=== PATIENT | female | born 1945 | race Caucasian/White ===

== ENCOUNTER 2016-12-20 16:46 | Observation (INO) | payer MEDICARE, OTHER ==
[~2016-12-20] VITALS: Ht 160 cm; Wt 112.5 kg
--- NOTE | ~2016-12-20 | DS ---
PATIENT'S NAME: MARIANA LEZAMA [facility] AGE: 71 Y [address] ROOM: [address]3211 [place] [address] LOCATION: [facility] [place] ADMIT DATE: 12/20/2016 Discharge Summary DISCHARGE DATE: 12/22/2016 FAMILY PHYSICIAN: Amber Sanders MD ATTENDING PHYSICIAN: Na Alberto DISCHARGE DIAGNOSES: 1. Left ureteral stone with hydronephrosis. 2. Morganella morganii urinary tract infection. 3. Diabetes, type 2. 4. Hypertension. 5. Hyperlipidemia. 6. Coronary artery disease. 7. Obesity. DISCHARGE MEDICATIONS: 1. Metformin 1000 mg p.o. twice daily. 2. Bupropion 150 mg p.o. daily. 3. Propranolol 80 mg p.o. daily. 4. Simvastatin 10 mg p.o. at bedtime. 5. Losartan 25 mg p.o. daily. 6. Imdur ER 30 mg p.o. daily. 7. Humalog insulin pen, 1 unit per one carb with carb count. 8. Lantus 26 units subcutaneous twice daily. 9. Xalatan drops, one drop ophthalmically every night at bedtime. 10. [place] 3 fatty acids/fish oil capsules 2000 mg p.o. b.i.d. 11. Multivitamin one tablet p.o. daily. 12. Calcium plus vitamin D 600 mg/400 mg two tablets p.o. daily. 13. Nitroglycerin 0.4 mg sublingually q.5 minutes p.r.n. chest pain. 14. Ciprofloxacin 500 mg p.o. twice daily for five days. PROCEDURES: Cystoscopy with left ureteral stent placement on 12/21/[address] Patricia Cline. PERTINENT LABORATORY DATA: Urine culture from 12/20/2016 did grow out Morganella morganii, greater than 100,000 colonies. Sensitivities did show that this was sensitive to the ceftriaxone the patient had been receiving, and we are sending her home on additional five days of ciprofloxacin. Accu-Cheks ranged anywhere from 65 to 296. Hemoglobin A1c was 6.1. White count upon admission was 14.4, hemoglobin was 14.4, hematocrit was 42.1, and platelets were 204. White count on 12/21/2016 had dropped to 10.3. Blood cultures that were obtained upon admission remain negative. CRP was elevated at 1.67. Lactate was elevated at 2.4. Procalcitonin was less than 0.05. PATIENT'S NAME: MARIANA LEZAMA [facility] AGE: 71 Y [address] ROOM: [address] [place], [place] [address] LOCATION: [facility] [place] ADMIT DATE: 12/20/2016 Discharge Summary DISCHARGE DATE: 12/22/2016 FAMILY PHYSICIAN: Amber Sanders MD ATTENDING PHYSICIAN: Na Alberto DIAGNOSTIC STUDIES: CT of the abdomen and pelvis on 12/20/2016 did show linear configured stones in the left UV junction measuring approximately 4 x 2 mm, and also noted was a moderate left hydronephrosis and left perinephric stranding consistent with obstruction. HOSPITAL COURSE: The patient was admitted under observation status. She was treated aggressively with IV fluids. Rocephin was initiated upon admission. Toradol was used as needed for pain. She was placed on a sliding scale. She was seen in consultation by Urology, Dr. Cline, on 12/21/2016, and arrangements were made for the cystoscopy with left stent. This was carried out on 12/21/2016. Postoperatively, the patient did fine. She was held for one overnight without any further issues besides some minimal dysuria, and ultimately was sent home on 12/22/2016. DISCHARGE DISPOSITION: The patient is being sent home on 12/22/2016 to her own home. DISCHARGE INSTRUCTIONS: She should adhere to a diabetic diet and resume her home medications. Added to this was another five days of ciprofloxacin to treat her UTI. Arrangements were made for her to follow up with Dr. Cline at his Clinic on 01/05/2017 at 09:45 a.m. It was encouraged for her daily to prevent antibiotic-induced diarrhea while on the ciprofloxacin. RUSS RAMEY PA-C FOR MD JANNETTE VIERA/james /[id number] CC: Patricia Cline MD d: 12/23/16 0053 t: 12/27/16 1626, DISCHARGE SUMMARY
--- NOTE | ~2016-12-20 | CON ---
PATIENT'S NAME: MARIANA LEZAMA [facility] AGE: 71 Y [address] ROOM: [place] [address] LOCATION: [facility] [place] ADMIT DATE: 12/20/2016 Consultation DISCHARGE DATE: FAMILY PHYSICIAN: Amber Sanders MD ATTENDING PHYSICIAN: BRAYDEN PERES DATE OF CONSULTATION: 12/21/2016 REFERRING PHYSICIAN: Patricia Cline MD HISTORY OF PRESENT ILLNESS: The patient is a 71-year-old female, who had a 1-day history of left-sided colic flank pain. The pain radiates from the back to the groin area. The patient was seen in the emergency room where an abdominal and pelvic CT scan was performed. This revealed a 2 mm x 4 mm distal left ureter stone, possibly 2, present with a moderate hydronephrosis and mild hydroureter. The patient reports a distant history of nephrolithiasis. I discussed cystoscopy with left stent placement. The patient has a suspected urinary tract infection. Urinalysis revealed 20 to 50 white cells per high-powered field. White count on admission was 14,000, is down to 10,000 today. The patient did receive IV Rocephin. PAST MEDICAL HISTORY: Significant for insulin-dependent type 2 diabetes, hypertension, hyperlipidemia, and coronary artery disease with a history of myocardial infarction. PAST SURGICAL HISTORY: Past operations include cholecystectomy, tubal ligation, and toe surgery. MEDICATIONS: Include: 1. Metformin 1000 mg twice daily. 2. Wellbutrin SR 150 mg daily. 3. Inderal LA 80 mg daily. 4. Zocor 10 mg daily. 5. Cozaar 25 mg daily. 6. Isordil 20 mg daily. 7. Humalog pen. 8. Insulin 26 units subcu. 9. Xalatan eyedrops. 10. Fish oil. 11. Multivitamins. 12. Calcium carbonate 1200 mg daily. ALLERGIES: PATIENT'S NAME: MARIANA LEZAMA [facility] AGE: 71 Y [address] ROOM: [address] [address] LOCATION: [facility] [place] ADMIT DATE: 12/20/2016 Consultation DISCHARGE DATE: FAMILY PHYSICIAN: Amber Sanders MD ATTENDING PHYSICIAN: BRAYDEN PERES MORPHINE AND LEVOFLOXACIN. SOCIAL HISTORY: The patient is a nonsmoker and does not consume alcohol. REVIEW OF SYSTEMS: Negative other than her flank pain and hypertension. PHYSICAL EXAMINATION: GENERAL: An elderly female, in no acute distress. VITAL SIGNS: Stable. Afebrile. LUNGS: Clear bilaterally. CARDIAC: Regular rhythm and rate. ABDOMEN: Soft and nondistended with normoactive bowel sounds throughout. Mild flank tenderness with palpation. NEUROLOGIC: Grossly intact. SKIN: Within normal limits. MUSCULOSKELETAL: Full range of motion. IMPRESSION: Distal left ureter stones with possible infection. PLAN: We will take to OR for cystoscopy and stent placement with followup ureteroscopy in the past once infection has cleared. MD GABRIELA VEGA/james /[id number] CC: Amber Sanders MD d: 12/21/16 1225 t: 12/30/16 1158, CONSULTATION REPORT
--- NOTE | ~2016-12-20 | OR ---
PATIENT'S NAME: MARIANA LEZAMA [facility] AGE: 71 Y [address] ROOM: [place] [address] LOCATION: [facility] [place] ADMIT DATE: 12/20/2016 OR/Procedure Report DISCHARGE DATE: FAMILY PHYSICIAN: Amber Sanders MD ATTENDING PHYSICIAN: BRAYDEN PERES SURGEON: Rosario Mathews MD ROCK DUST SPRAYER: DATE OF PROCEDURE: 12/21/2016 PREOPERATIVE DIAGNOSES: 1. Distal left ureteral stones. 2. Urinary tract infection. POSTOPERATIVE DIAGNOSES: 1. Distal left ureteral stones. 2. Urinary tract infection. PROCEDURE PERFORMED: Cystoscopy, left stent placement. ANESTHESIA: MAC. COMPLICATIONS: None. INDICATION FOR PROCEDURE: The patient is a 71-year-old female admitted secondary to a 2 x 4-mm distal left ureteral stone with moderate hydronephrosis and mild hydroureter. The patient also was noted to have a white count of 14,000 at admission, urinalysis with up to 50 white cells per high-power field, and many bacteria present. DETAILS OF PROCEDURE: After informed consent was obtained, the patient was taken to the operating room. A MAC anesthetic was applied. She was placed in the dorsal lithotomy position. The groin area was prepped and draped in normal sterile fashion. Cystoscope was introduced into the urethra and bladder without difficulty. The left ureteral orifice was cannulated with a guidewire up into the renal pelvis. Next, a 6-Yakut multi-length ureteral stent was passed over the guidewire up into the renal pelvis. Radiographic imaging showed good position of the stent. The patient tolerated the procedure well, was transferred to the recovery room in good condition. ROSARIO MATHEWS MD GABRIELA/modl PATIENT'S NAME: MARIANA LEZAMA [facility] AGE: 71 Y [address] ROOM: [place] [address] LOCATION: [facility] [place] ADMIT DATE: 12/20/2016 OR/Procedure Report DISCHARGE DATE: FAMILY PHYSICIAN: Amber Sanders MD ATTENDING PHYSICIAN: BRAYDEN PERES /[id number] d: 12/21/16 1416 t: 12/30/16 1200, OPERATIVE SUMMARY
--- NOTE | ~2016-12-20 | ER ---
PATIENT'S NAME: ISAI LEZAMATY Caridad [facility] AGE: 71 Y [address] ROOM: [place] [address] LOCATION: [facility] [place] ADMIT DATE: 12/20/2016 ER/Outpatient Report DISCHARGE DATE: FAMILY PHYSICIAN: Amber Sanders MD ATTENDING PHYSICIAN: BRAYDEN PERES Time of Patient's Arrival: 1646 hours. Time of Patient's Evaluation: 1700 hours. CHIEF COMPLAINT: Left-sided abdominal pain/back pain. HISTORY OF PRESENT ILLNESS: This is a 71-year-old female who presents to the ER, who states that she has not been feeling well since last evening. She states she is having some pain, that started kind of in her left lower abdomen and now is radiating up into her left flank. She states her pain is constant and nothing has been making it feel better. She describes her pain as sharp in nature and she has never had anything like this before. She did try some Tylenol an hour ago without relief. She does not believe she has been running any fevers at home. She has had no troubles with urination. No diarrhea and no nausea or vomiting. The patient denies any chest pain or shortness of breath at this time. ALLERGIES: LEVAQUIN AND MORPHINE. MEDICATIONS: Please see medication list in nurse's notes. PAST MEDICAL HISTORY: 1. Insulin-dependent diabetes. 2. Hypertension. 3. Hypercholesterolemia. PAST SURGICAL HISTORY: Cholecystectomy and a tubal ligation. SOCIAL HISTORY: Denies smoking or drug use. REVIEW OF SYSTEMS: All systems were reviewed and were negative with the exception of those discussed in the HPI. PHYSICAL EXAMINATION: PATIENT'S NAME: MARIANA LEZAMA [facility] [place] AGE: 71 Y [address] ROOM: [place] [id number] LOCATION: [facility] [place] ADMIT DATE: 12/20/2016 ER/Outpatient Report DISCHARGE DATE: FAMILY PHYSICIAN: Amber Sanders MD ATTENDING PHYSICIAN: BRAYDEN PERES VITAL SIGNS: Height 5 feet 3 inches stated, weight 111.0 kg taken, blood pressure is 229/96, pulse 76, respirations 18, temperature 98.4 degrees tympanically, and saturations 96% on room air. Henry Coma Score is 15. GENERAL: An alert, obese female, in moderate distress. HEENT: Head: Normocephalic. She does display moist mucous membranes. Eyes: Pupils are equal and reactive to light. NECK: Supple. No lymphadenopathy lungs are clear auscultation bilaterally. HEART: Regular rate and rhythm. ABDOMEN: Soft. She does have some left-sided CVA tenderness with palpation. She has no guarding or rebound tenderness in her abdomen. She has good bowel sounds throughout. No masses were palpated. EXTREMITIES: No clubbing or cyanosis. She has full range of motion of all limbs. SKIN: Warm, dry, and intact. LABORATORY DATA: CBC: White count is 14.4, platelets 204, ANC is 10.3. CMS: Sodium is 139, potassium is 4.1, BUN is 22, creatinine is 1.2, and GFR is 46. Urinalysis: Leukocytes 500, nitrites negative. UA micro: White blood cells 20-50, red blood cells 0-2, epithelial 10-20, bacteria many. CT scan was done per stone protocol and that showed that she has 2 kidney stones that are measuring approximately 4.2 mm in size causing moderate hydronephrosis. IMPRESSION: 1. Two kidney stones, left sided, causing hydronephrosis. 2. Urinary tract infection. ASSESSMENT AND PLAN: We did start an IV upon her arrival. Two sets of blood cultures were obtained as well as a culture of her urine. The patient was given a liter of fluids, 4 mg of Zofran IV, and 15 mg of Toradol IV, which improved her pain. I did order 2 g of Rocephin IV. The patient's primary care physician is Dr. Amber Sanders, so we did call the Hospitalist Service and I will be admitting her for further care. I also called Dr. Cline who is recreation professor for Urology and he will be consulting as well. The patient and the patient's understand and agree with care. ROSALEE VERNON PA-C FOR MAUREEN TORRES, ACCaridad/modl PATIENT'S NAME: MARIANA LEZAMA [facility] [place] AGE: 71 Y [address] ROOM: [address] [address] LOCATION: [facility] [place] ADMIT DATE: 12/20/2016 ER/Outpatient Report DISCHARGE DATE: FAMILY PHYSICIAN: Amber Sanders MD ATTENDING PHYSICIAN: BRAYDEN PERES /[id number] d: t: 12/25/16 1206, OUTPATIENT REPORT
--- NOTE | ~2016-12-20 | HP ---
PATIENT'S NAME: MARIANA LEZAMA [facility] AGE: 71 Y [address] ROOM: [place] [address] LOCATION: [facility] [place] ADMIT DATE: 12/20/2016 History & Physical DISCHARGE DATE: FAMILY PHYSICIAN: Amebr Sanders MD ATTENDING PHYSICIAN: BRAYDEN PERES DATE OF SERVICE: CHIEF COMPLAINT: Left flank pain, nephrolithiasis. HISTORY OF PRESENT ILLNESS: This is a 71-year-old female with a history of diabetes, hypertension who presents with a 1-day history of left-sided colicky flank pain with radiation to her back and left groin. The patient states that the pain started last night which progressively worsened throughout the day and was brought to the emergency room for evaluation. The patient reports that she had something similar happened to her previously for about a day or so then this stopped and she thinks she might have passed a kidney stone at that point. The patient otherwise today is resting comfortably after pain medication and then the patient in the emergency room is controlled very well. Denies any fevers, chills, suprapubic tenderness, dysuria, urinary urgency or frequency symptoms. Denies any chest pain, shortness of breath, dizziness, or lightheadedness as well. PAST MEDICAL HISTORY: 1. Type 2 diabetes. 2. Essential hypertension. 3. Hyperlipidemia. SOCIAL HISTORY: Denies any history of smoking, alcohol, or drug use. FAMILY HISTORY: The patient has a history of diabetes in her parents as well as heart disease. REVIEW OF SYSTEMS: All systems have been reviewed and were all negative except as described in the HPI. PHYSICAL EXAMINATION: VITAL SIGNS: Afebrile. Blood pressure 131/78, respiratory rate 20, and saturating 98% on room air. GENERAL: The patient is awake, alert, and oriented x3. Resting comfortably in bed, in no acute distress. PATIENT'S NAME: MARIANA LEZAMA [facility] AGE: 71 Y [address] ROOM: [place] [address] LOCATION: [facility] [place] ADMIT DATE: 12/20/2016 History & Physical DISCHARGE DATE: FAMILY PHYSICIAN: Amber Sanders MD ATTENDING PHYSICIAN: BRAYDEN PERES HEENT: Moist mucous membranes. No scleral icterus. Conjunctival pallor noted. SKIN: Without rashes or lesions. CHEST: Clear to auscultation bilaterally. HEART: S1 and S2. Regular rate and rhythm. ABDOMEN: Soft, nondistended, and mild tenderness to deep palpation in the left flank. Positive bowel sounds. NEUROLOGIC: Moves all her extremities. Nonfocal neurological exam grossly. MUSCULOSKELETAL: No joint tenderness, erythema, or swelling noted. No bruising or muscular tenderness noted as well. ASSESSMENT AND PLAN: 1. Renal colic. CT scan showing an obstructing kidney stone measuring about 4 mm per report from the ED. We will give aggressive IV fluids and monitor overnight in case as stone passes. Urology has been consulted and she will be evaluated in the morning with Urology as well. 2. Left nephrolithiasis. The patient appears to have history of one prior attack. She is hypertensive and I will put her on hydrochlorothiazide as calcium stones are most likely to be the cause. 3. Complicated urinary tract infection. I will put her on Rocephin 2 g daily as cultures are pending. 4. Type 2 diabetes. We will continue her home diabetes regimen plus sliding scale insulin. 5. Hypertension. We will also continue patient's home medication. 6. Hyperlipidemia. We will continue her simvastatin therapy. 7. Deep venous thrombosis prophylaxis. We will use SCDs. MD VADIM MAYS/james /[id number] D: [id number] T: [id number] HISTORY & PHYSICAL
[2016-12-20 17:15] LABS: BILIRUBIN URINE NEGATIVE (NEGATIVE); BLOOD URINE 50 /UL (NEGATIVE); COLOR URINE YELLOW (YELLOW); GLUCOSE URINE NEGATIVE (NEGATIVE); KETONE URINE NEGATIVE (NEGATIVE); LEUKOCYTES URINE 500 /UL (NEGATIVE); NITRITE URINE NEGATIVE (NEGATIVE); PROTEIN URINE 15 mg/dL (NEGATIVE); SPEC GRAVITY URINE 1.015 (1.003-1.035); TURBIDITY URINE 2+ (CLEAR); UROBILINOGEN URINE NORMAL (NORMAL)
[2016-12-20 17:25] LABS: BACTERIA URINE MANY (NEGATIVE); RBC URINE 0-2 #/HPF (NEGATIVE); WBC URINE 20-50 #/HPF (NEGATIVE)
[2016-12-20 17:42] LABS: BASOPHIL # 0.1 K/uL (0.0-0.2); BASOPHIL % 0.3 %; EOSINOPHIL # 0.1 K/uL (0.0-0.5); EOSINOPHIL % 0.7 %; HEMATOCRIT 42.1 % (33.0-46.0); HEMOGLOBIN 14.4 g/dL (10.0-15.0); IMMATURE GRANULOCYTE # 0.1 K/uL (0.0-0.3); IMMATURE GRANULOCYTE % 0.3 %; LYMPHOCYTE # 2.9 K/uL (0.8-4.0); LYMPHOCYTE % 20.3 %; MCH 31.3 pg (27.0-34.0); MCHC 34.2 gm/dL (32.0-36.5); MCV 91.5 fl (83.0-98.0); MONOCYTE % 6.7 %; MPV 8.8 fl (9.4-12.4); NEUTROPHIL # (ANC) 10.3 K/uL (1.8-7.8); NEUTROPHIL % 71.7 %; NRBC % 0 /100WBC (0-0.00); PLATELET COUNT 204 K/uL (150-450); RDW-CV 13.2 % (11.9-14.6); WBC 14.4 K/uL (4.0-11.0)
[2016-12-20 17:58] LABS: ALBUMIN 3.5 gm/dL (3.5-5.0); ANION GAP 11.1 (10.0-19.0); CALCIUM 9.4 mg/dL (8.5-10.5); CREATININE 1.2 mg/dL (0.5-1.1); POTASSIUM 4.1 mMol/L (3.7-5.1); TOTAL BILIRUBIN 0.3 mg/dL (0.0-1.5); TOTAL PROTEIN 7.4 g/dL (6.0-8.4)
[2016-12-20] MEDS ORDERED: GLUCOPHAGE XR500 M1 PO (20:38)
[2016-12-20] MEDS ORDERED: WELLBUTRIN SR150 MG PO (20:39)
[2016-12-20] MEDS ORDERED: INDERAL LA80 MG PO (20:41)
[2016-12-20] MEDS ORDERED: ZOCOR10 MG PO (20:46)
[2016-12-20] MEDS ORDERED: COZAAR25 MG PO (20:51)
[2016-12-20] MEDS ORDERED: IMDUR30 MG PO (20:55)
[2016-12-20] MEDS ORDERED: HUMALOG100 UNIT/3 SUB-Q (20:58)
[2016-12-20] MEDS ORDERED: LANTUS (IN100 UNIT/M SUB-Q (21:01)
[2016-12-20] MEDS ORDERED: XALATAN2.5 ML OPHTH (21:07)
[2016-12-20] MEDS ORDERED: THERA-VITE W/ B1 TAB PO (21:09)
[2016-12-20] MEDS ORDERED: FISH OIL 1,0001 EACH PO (21:09)
[2016-12-20] MEDS ORDERED: CALCIUM 600 +1 EA16 PO (21:10)
--- NOTE | 2016-12-21 01:12 | NUR ---
PATIENT ADMITTED FROM ER WITH THE PRIMARY COMPLAINT OF LEFT FLANK PAIN. THIS IS RESOLVED UPON ARRIVAL TO [facility]. IT IS REPORTED THAT THE PATIENT HAS 2 KIDNEY STONES. WE ARE STRAINING HER URINE, PATIENT IS AWARE OF THIS. PATIENT IS ALERT AND ORIENTED X3. IDDM. ACCUCHECKS ARE ACHS. PATIENT BROUGHT HER OWN CPAP. PATIENT IS UPDATED ON PLAN OF CARE AND IS MADE NPO PER DR. MATHEWS. IVF INFUSING AT 125ML/HR. PATIENT IS ORIENTED TO ROOM AND SURROUNDINGS AND MADE AWARE THE NEED TO USE CALL LIGHT WITH ANY NEEDS. PATIENT MADE AWARE OF BED ALARM AT NIGHT.
[2016-12-21 04:39] LABS: BASOPHIL % 0.4 %; EOSINOPHIL # 0.1 K/uL (0.0-0.5); EOSINOPHIL % 1.1 %; HEMATOCRIT 38.6 % (33.0-46.0); HEMOGLOBIN 13.1 g/dL (10.0-15.0); IMMATURE GRANULOCYTE % 0.3 %; LYMPHOCYTE # 3.2 K/uL (0.8-4.0); LYMPHOCYTE % 31.3 %; MCH 30.8 pg (27.0-34.0); MCHC 33.9 gm/dL (32.0-36.5); MCV 90.8 fl (83.0-98.0); MONOCYTE # 0.8 K/uL (0.0-1.0); MONOCYTE % 7.6 %; NEUTROPHIL # (ANC) 6.1 K/uL (1.8-7.8); NEUTROPHIL % 59.3 %; NRBC % 0 /100WBC (0-0.00); RBC 4.25 M/uL (3.50-5.50); RDW-CV 13.2 % (11.9-14.6); WBC 10.3 K/uL (4.0-11.0)
[2016-12-21 04:40] LABS: PLATELET COUNT 136 K/uL (150-450)
--- NOTE | 2016-12-21 04:43 | NUR ---
Significant Event: PATIENT IS ALERT AND ORIENTED. ADMITTING WITH KIDNEY STONES X2. TORADOL ADMINISERED IN ER AND HAS HAD NO COMPLAINTS OF PAIN SINCE. PATIENT HAS HISTORY OF FREQUENT UTI'S. ROCEHEN STARTED FOR CURRENT UTI. DR MATHEWS CONSULTED. NPO FOR POSSIBLE PROCEDURE TODAY WITH HIM. UP WITH STAND BY ASSIST. NS INFUSING AT 125ML/HR. Follow up:
[2016-12-21 04:56] LABS: ALBUMIN 2.8 gm/dL (3.5-5.0); CALCIUM 8.5 mg/dL (8.5-10.5); CREATININE 0.9 mg/dL (0.5-1.1); PHOSPHORUS 2.9 mg/dL (2.5-4.9)
[2016-12-21 04:58] LABS: ANION GAP 12.3 (10.0-19.0); MAGNESIUM 1.9 mg/dL (1.8-2.6)
[2016-12-21 04:59] LABS: POTASSIUM 4.3 mMol/L (3.7-5.1)
[2016-12-21] MEDS ORDERED: NITROSTAT0.4 MG SL (14:34)
--- NOTE | 2016-12-21 15:04 | NUR ---
[facility] note Attempted to do some Diabetes Education today, but patient was not available in the room at the time. Diabetes management booklet and Survival Skills checklist left with nurse, will attempt to follow up tomorrow. 12/22/16
--- NOTE | 2016-12-21 17:16 | NUR ---
Significant event:Patient is alert and oriented. VSS. on room air. IV to left forearm with fluids running at 125mls/hr. Is stand by assist with ambulation. Had a cysto with left stent placement today. Has done well. Toradol at 1630 for some achiness/cramping in abd. Is ACHS accuchecks with mild sliding scale. No coverage needed. Does wear CPAP at night. Probably home tomarrow. COoperative with cares.
--- NOTE | 2016-12-22 02:27 | NUR ---
SIGNIFICANT EVENT: VSS. IV TO L) FA RUNNING NS @ 125ML/HR. STANDBY ASSIST. TORODOL IV FOR PAIN Q6HRS, LAST GIVEN @2220. POSSIBLE DISCHARGE IN THE AM. DIABETIC DIET, ACHS AND CARB COUNT.
[2016-12-22] MEDS ORDERED: CIPRO500 MG PO (14:57)
--- NOTE | 2016-12-22 15:16 | NUR ---
DISCHARGE: D: ORDERS RECEIVED FOR THE PATIENT TO BE DISCHARGED TO HOME WITH FAMILY. I: DISMISSAL INSTRUCTIONS WERE PREPARED AND REVIEWED WITH THE PATIENT AND HER VIRTUALLY. THE FOLLOWING INFORMATION WAS DISCUSSED INCLUDING KRAMES TEACHING SHEETS PROVIDED: CYSTOSCOPY, URETERAL STENTS DISCHARGE INSTRUCTIONS, CIPRO, UTI IN WOMEN AND UNDERSTANDING UTIS. REVIEWED FOLLOW UP APPOITMENTS AND NEW MEDICATION SIDE EFFECTS AND THAT THEY WILL HAVE TO TAKE THE PRESCRIPTION TO THE PHARMACY OF THERE CHOICE TO GET THEM FILLED. R: THE PATIENT AND HERE BOTH VERBALIZED UNDERSTANDING OF THE DISMISSAL EDUCATION AT THE TIME OF TEACHING WITH NO FURTHER QUESTIONS. P: THE ABOVE INFORMATION WAS SHARED WITH THE PRIMARY NURSE AND THE CHARGE NURSE THAT THE PATIENT'S DISMISSAL EDUCATION WAS COMPLETED. THE PATIENT IS READY FOR DISCHARGE TO THE FRONT DOOR VIA WHEEL CHAIR BY NURSING STAFF.
[2016-12-30] MEDS ORDERED: CPAP INH (10:34)
== END 2016-12-22 15:50 | disposition disaster alternative care site (69) ==
LOC: GMED 16:46 → GMSU 19:05
PROVIDERS: Emergency Medicine; ADMIT Internal Medicine
PROC: 0T778DZ Dilation of Left Ureter with Intraluminal Device, Via Natural or Artificial Opening Endoscopic (ICD-10-PCS; principal; 2016-12-21)
DX: N13.2 Hydronephrosis with renal and ureteral calculous obstruction (principal); N39.0 Urinary tract infection, site not specified; I10 Essential (primary) hypertension; E78.5 Hyperlipidemia, unspecified; E11.9 Type 2 diabetes mellitus without complications; I25.10 Atherosclerotic heart disease of native coronary artery without angina pectoris; I25.2 Old myocardial infarction; E66.9 Obesity, unspecified; Z68.41 Body mass index [BMI] 40.0-44.9, adult; Z79.84 Long term (current) use of oral hypoglycemic drugs; Z79.4 Long term (current) use of insulin; Z79.899 Other long term (current) drug therapy; Z90.49 Acquired absence of other specified parts of digestive tract; Z98.51 Tubal ligation status; Z98.890 Other specified postprocedural states
CPT/HCPCS: C1769; G0378; J0696; J1580; J1610; J1885; J2405; J7030; J7040

== ENCOUNTER 2017-01-04 17:41 | Emergency (ER) | payer MEDICARE, OTHER ==
--- NOTE | ~2017-01-04 | ER ---
[facility] AGE[facility] 71 Y [address] ROOM: [place] [id number] LOCATION: ED ADMIT DATE: 01/04/2017 ER/Outpatient Report DISCHARGE DATE: 01/04/2017 FAMILY PHYSICIAN: Amber Sanders MD ATTENDING PHYSICIAN: Mandy Farris TIME OF ARRIVAL: 1750 hours. TIME OF EXAM: 1750 hours. CHIEF COMPLAINT: Abdominal pain and back pain. HISTORY OF PRESENT ILLNESS: The patient states that she had a kidney stone a week ago, had a stent placed, and then today she came in to have the stent removed. They told her there was no stone and that everything looked good. She went home at 10:30 this morning, did vomit after she ate breakfast this morning, and then has had some lower left abdominal pain that radiates around to the back. She did call and talk with her provider. 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 She states the pain is not improved, she ate some crackers and yogurt at 4:30, continues to have discomfort, has not vomited since this morning, has not had fever or chills, states she had a bowel movement yesterday. CURRENT MEDICATIONS: On the chart and reviewed by me. ALLERGIES: ON THE CHART AND REVIEWED BY ME. PAST MEDICAL HISTORY: Insulin-dependent diabetes, hypertension, increased cholesterol, and kidney stones. PAST SURGERIES: Cholecystectomy, renal stent, tubal ligation, hysterectomy, and breast biopsy. SOCIAL HISTORY: She presents to the ER accompanied by her . She denies use of tobacco, drugs, or alcohol. REVIEW OF SYSTEMS: PATIENT'S NAME: ISAI LEZAMATY [facility] AGE: 71 Y [address] ROOM: [place], [place] [address] LOCATION: ED ADMIT DATE: 01/04/2017 ER/Outpatient Report DISCHARGE DATE: 01/04/2017 FAMILY PHYSICIAN: Amber Sanders MD ATTENDING PHYSICIAN: Mandy Farris Negative other than those mentioned in the HPI. PHYSICAL EXAMINATION: VITAL SIGNS: She weighed 111.7 kg. Blood pressure is 178/79, pulse is 74, respirations 18, temp of 98.5, tympanic, and O2 sat was 94% on room air. GENERAL: She is awake, alert, and oriented x4. SKIN: [place], warm, and dry. RESPIRATIONS: Even and nonlabored. Lung sounds were clear throughout. HEART: Regular rate and rhythm. ABDOMEN: Soft, nondistended. Bowel sounds are present. She has minimal discomfort with deep palpation. LABORATORY DATA: Clean-catch UA was obtained. It did show 25 leukocytes, 250 of blood. Micro white cells are 0 to 2, bacteria is negative. Lab work was drawn. White count is elevated at 19.6. ANC was 17.9. Chem panel: Sodium is 137, potassium is 4.2, chloride is 103, her glucose is 183, BUN is 18, and creatinine 1.2. GFR was 46. Lactate was 2.3. Procalcitonin was 3.81. EMERGENCY DEPARTMENT COURSE: The patient was reviewed with Dr. Dolan. The patient was given Toradol 30 mg IM. She states her pain is gone and she is feeling much better. IMPRESSION: Abdominal pain and back pain. PLAN: The patient to go home, rest, and drink fluids. Prescription was written for Ketorolac to take every 6 hours. She states she has an appointment to see Dr. Sanders tomorrow, encouraged her to keep that appointment to have lab works rechecked. She verbalized understanding. ALMA LEYVA APRN FOR MD BAKARI MARROQUIN/james /[id number] d: 01/05/175 t: 01/06/173, OUTPATIENT REPORT
[2017-01-04 18:05] LABS: BILIRUBIN URINE NEGATIVE (NEGATIVE); BLOOD URINE 250 /UL (NEGATIVE); COLOR URINE YELLOW (YELLOW); GLUCOSE URINE NEGATIVE (NEGATIVE); KETONE URINE 15 mg/dL (NEGATIVE); LEUKOCYTES URINE 25 /UL (NEGATIVE); NITRITE URINE NEGATIVE (NEGATIVE); PROTEIN URINE 30 mg/dL (NEGATIVE); TURBIDITY URINE 2+ (CLEAR); UROBILINOGEN URINE NORMAL (NORMAL)
[2017-01-04 18:13] LABS: BASOPHIL # 0.1 K/uL (0.0-0.2); BASOPHIL % 0.3 %; EOSINOPHIL % 0.1 %; HEMATOCRIT 42.6 % (33.0-46.0); HEMOGLOBIN 14.1 g/dL (10.0-15.0); IMMATURE GRANULOCYTE # 0.1 K/uL (0.0-0.3); IMMATURE GRANULOCYTE % 0.4 %; LYMPHOCYTE # 0.9 K/uL (0.8-4.0); LYMPHOCYTE % 4.5 %; MCH 30.9 pg (27.0-34.0); MCHC 33.1 gm/dL (32.0-36.5); MCV 93.2 fl (83.0-98.0); MONOCYTE # 0.7 K/uL (0.0-1.0); MONOCYTE % 3.6 %; MPV 9.1 fl (9.4-12.4); NEUTROPHIL # (ANC) 17.9 K/uL (1.8-7.8); NEUTROPHIL % 91.1 %; NRBC % 0 /100WBC (0-0.00); RBC 4.57 M/uL (3.50-5.50); RDW-CV 13.2 % (11.9-14.6)
[2017-01-04 18:18] LABS: PLATELET COUNT 195 K/uL (150-450); WBC 19.6 K/uL (4.0-11.0)
[2017-01-04 18:23] LABS: BACTERIA URINE NEGATIVE (NEGATIVE); EPITHELIAL URINE 0-2 #/HPF (NEGATIVE); WBC URINE 0-2 #/HPF (NEGATIVE)
[2017-01-04 18:32] LABS: ALBUMIN 3.2 gm/dL (3.5-5.0); ANION GAP 11.2 (10.0-19.0); CALCIUM 8.9 mg/dL (8.5-10.5); CREATININE 1.2 mg/dL (0.5-1.1); POTASSIUM 4.2 mMol/L (3.7-5.1); TOTAL PROTEIN 6.9 g/dL (6.0-8.4)
[2017-01-04 18:33] LABS: TOTAL BILIRUBIN 0.4 mg/dL (0.0-1.5)
== END 2017-01-04 19:00 | disposition disaster alternative care site (69) ==
LOC: GMED 17:41
PROVIDERS: Nurse Practitioner Family
DX: R10.9 Unspecified abdominal pain (principal); M54.9 Dorsalgia, unspecified; I10 Essential (primary) hypertension; E11.9 Type 2 diabetes mellitus without complications; E78.00 Pure hypercholesterolemia, unspecified; Z90.49 Acquired absence of other specified parts of digestive tract; Z90.710 Acquired absence of both cervix and uterus; Z98.51 Tubal ligation status; Z88.5 Allergy status to narcotic agent; Z88.8 Allergy status to other drugs, medicaments and biological substances
CPT/HCPCS: J1885

== ENCOUNTER → 2017-01-04 | Day surgery (SDC) | payer MEDICARE, OTHER ==
[~2017-01-04] VITALS: Ht 243.8 cm; Wt 109.0 kg
[~2017-01-04] MED LIST: CALCIUM 600 +1 EA16 PO; CIPRO500 MG PO; COZAAR25 MG PO; CPAP INH; FISH OIL 1,0001 EACH PO; GLUCOPHAGE XR500 M1 PO; HUMALOG100 UNIT/3 SUB-Q; IMDUR30 MG PO; INDERAL LA80 MG PO; LANTUS (IN100 UNIT/M SUB-Q; NITROSTAT0.4 MG SL; THERA-VITE W/ B1 TAB PO; WELLBUTRIN SR150 MG PO; XALATAN2.5 ML OPHTH; ZOCOR10 MG PO
--- NOTE | ~2017-01-04 | OR ---
PATIENT'S NAME: MARIANA LEZAMA [facility] AGE: 71 Y [address] ROOM: [place], [place] [address] [place] [facility] [place]: 01/04/2017 OR/Procedure Report DISCHARGE DATE: FAMILY PHYSICIAN: Amber Sanders MD ATTENDING PHYSICIAN: Rosario Mathews SURGEON: Rosario Mathews MD METAL CASKET MAKER: DATE OF PROCEDURE: 01/04/2017 PREOPERATIVE DIAGNOSIS: Distal left ureter stone. POSTOPERATIVE DIAGNOSIS: Distal left ureter stone. PROCEDURE PERFORMED: Cystoscopy, stent removal, left ureteroscopy, left retrograde pyelogram. ANESTHESIA: MAC. COMPLICATIONS: None. INDICATION FOR PROCEDURE: The patient is a 71-year-old female, initially seen with two distal left ureter stones totaling 4 x 2 mm and urinary tract infection. Because of this, the patient underwent cystoscopy with stent placement now presents for stone removal. DETAILS OF PROCEDURE: After informed consent obtained, the patient was taken to the operating room. A MAC anesthetic applied and she was placed in the dorsal lithotomy position. The groin area was prepped and draped in normal sterile fashion. Cystoscope was introduced into the urethra and bladder without difficulty. The stent was identified, and left ureteral orifice engaged with grasping forceps and partially removed. A guidewire was then passed through the stent up into the renal pelvis. The stent was removed. Next, the ureteroscope was introduced into the distal ureter and driven up to mid ureter. No stones were identified. I then slowly retracted the ureteroscope and again no stones were identified. I then injected contrast through the ureteroscope and there were no filling defects noted. There was no hydronephrosis. The renal pelvis was of normal caliber. Also, the system drained well. Following this, the bladder was empty and the procedure terminated. The patient tolerated the procedure well transferred to recovery room in good condition. ROSARIO MATHEWS MD PATIENT'S NAME: MARIANA LEZAMA [facility] AGE: 71 Y [address] ROOM: [place], [place] [address] [place] [facility] [place]: 01/04/2017 OR/Procedure Report DISCHARGE DATE: FAMILY PHYSICIAN: Amber Sanders MD ATTENDING PHYSICIAN: Rosario Mathews/james /[id number] CC: Amber Sanders MD d: 01/04/17 1625 t: 01/19/17 1645, OPERATIVE SUMMARY
== END | disposition disaster alternative care site (69) ==
LOC: GPOC 12-30 11:00 → GSDC 06:42 → GPOC 07:00
PROC: 0TJ58ZZ Inspection of Kidney, Via Natural or Artificial Opening Endoscopic (ICD-10-PCS; principal; 2017-01-04)
DX: N20.1 Calculus of ureter (principal); N39.0 Urinary tract infection, site not specified; I10 Essential (primary) hypertension; E78.5 Hyperlipidemia, unspecified; E11.9 Type 2 diabetes mellitus without complications; I25.10 Atherosclerotic heart disease of native coronary artery without angina pectoris; I25.2 Old myocardial infarction; Z79.4 Long term (current) use of insulin; Z79.84 Long term (current) use of oral hypoglycemic drugs; Z79.899 Other long term (current) drug therapy; Z90.49 Acquired absence of other specified parts of digestive tract; Z98.51 Tubal ligation status; Z98.890 Other specified postprocedural states
CPT/HCPCS: C1769; J1580; J2001; J7030

== ENCOUNTER → 2017-01-05 | Outpatient (CLI) | payer MEDICARE, OTHER ==
[2017-01-05 09:39] LABS: CPK 69 IU/L (21-215)
== END ==
LOC: LFPA 08:59
PROVIDERS: Family Medicine
DX: R07.9 Chest pain, unspecified (principal); N39.0 Urinary tract infection, site not specified

== ENCOUNTER → 2017-01-14 | Outpatient (CLI) | payer MEDICARE, OTHER ==
--- NOTE | ~2017-01-14 | ESTC ---
Cardiac Perfusion Imaging Demographics Patient Name LISE Mclean Gender Female Patient Number [id number] Race Visit Number [id number] Ethnicity Corporate ID Room Number Accession Number [id number] Height 63 inches Date of 1945 Weight 235 pounds Judi Rooney Date of study 01/14/2017 Physician Justice Guzman Supervising MD/MLP Lesley Forde NM Technologist Glenn Light MD Ordering Physician Tommy Gardner MD Stress identification technician Stress ECG Reading Lesley Forde Nurse Mini Solares RN Physician A MD Harpreet Holliday RN Procedure Procedure Type: Nuclear Stress Test:Pharmacological, Lexiscan, Cardiolite Stress Test Procedure Start time: 01/14/2017 00:00 Indications: Chest pain. Risk Factors The patient risk factors include:obesity, treated hypercholesterolemia, treated hypertension, insulin treated diabetes mellitus, dyslipidemia and prior heart failure . Conclusions Summary Perfusion Images: The overall quality of the study is fair, due to soft tissue attenuation. Left ventricular cavity is noted to be normal on the stress and rest studies. There is no evidence of abnormal lung activity. The right ventricle is not visualized and cannot be assessed. Stress SPECT images and Rest SPECT images demonstrate homogenous tracer distribution throughout the myocardium except for moderate decrease uptake in the area involving the distal anterior wall consistent with soft tissue attenuation. Gated SPECT imaging reveals normal myocardial thickening and wall motion. The left ventricular ejection fraction was calculated to be >70%. Impression ECG portion of stress test is clinically negative for ischemia by diagnostic criteria. Myocardial perfusion imaging is mildly abnormal. The anterior wall matched defect is consistent with soft tissue attenuation. No significant reversible perfusion defects were seen to suggest ischemia. Overall left ventricular systolic function was normal without regional wall motion abnormalities. Stress Protocols Resting ECG SR minor T changes Pre-stress physical exam: Patient assessed by Dr Sutton prior to testing. Stress Protocol:Pharmacologic Predicted HR: 151 bpm ECG Findings No ECG changes suggestive of ischemia. Arrhythmias No rhythm abnormality. Symptoms Shortness of breath. Stress Interpretation Appropriate hemodynamic response to Lexiscan. No significant ST-T wave changes with Lexiscan. ECG portion is negative for ischemia by diagnostic criteria. Imaging Results Summed scores - Summed stress score: 16 - Summed rest score: 14 - Summed difference score: 2 Stress ejection Ejection fraction:75 % EDV :81 ml ESV :20 ml Stroke volume :61 ml LV mass :106 gr Imaging Protocols Rest Stress Isotope:Tc99m Sestamibi IV Isotope: Tc99m Sestamibi IV Isotope dose:15.3 mCi Isotope dose:44.6 mCi Date:01/14/2017 07:12 Date:01/14/2017 09:27 Technique: SPECT Technique: Gated Supine SPECT Supine Scan Time:45-60 minutes post Scan Time:45-60 minutes post injection injection Procedure Medications - Regadenoson (Lexiscan) 0.4 mg IV over 10-15 sec. I.V. 0.4 mg. - Regadenoson (Lexiscan) 0.4 mg IV over 10-15 sec. I.V. 0.4 mg. Medications administered per verbal order and read back to physician prior to administration. Medical History Admission Data Admission date: 01/14/2017 Admission Time: 06:56 Hospital Status: Outpatient. Signatures dtt: BOYD MONROE dtd: 01/14/17 0000 Physician Self Edit
== END | disposition disaster alternative care site (69) ==
LOC: GRAD 06:56
DX: I20.1 Angina pectoris with documented spasm (principal); E78.00 Pure hypercholesterolemia, unspecified; I10 Essential (primary) hypertension; E11.9 Type 2 diabetes mellitus without complications; E78.5 Hyperlipidemia, unspecified; E66.9 Obesity, unspecified
CPT/HCPCS: A9500; J2785